=== PATIENT | male | born 1945 | race Caucasian/White ===

== ENCOUNTER 2018-01-05 15:28 | Emergency (ER) | payer MEDICARE, BC ==
--- NOTE | 2018-01-05 17:29 | RAD ---
HISTORY: Right humerus injury COMPARISONS: None VIEWS: 2, Frontal internal rotation and external rotation views of the right humerus FINDINGS: BONE DENSITY: Normal. BONES: There is no displaced fracture. JOINTS: There is mild osteoarthritis of the AC joint. ALIGNMENT: There is no dislocation. SOFT TISSUES: Unremarkable. OTHER FINDINGS: There is dystrophic calcification along the medial humeral epicondyle. IMPRESSION: NO ACUTE OSSEOUS INJURY. IF SYMPTOMS PERSIST, RECOMMEND REPEAT IMAGING.
[2018-01-05 17:50] LABS: INR 1.96 (0.77-1.02)
--- NOTE | 2018-01-05 18:15 | ED ---
Upper Extremity Pain - HPI Summary HPI Summary: 72 male presents with right arm pain for 4 days. He states 4 days ago he was lifting up behind felt a pop. He states that it seemed to get better and lift a bee hive again and felt another pop. He states that the bruising has increased since yesterday. He is placing ice on the area. He denies any chest pain or shortness breath. He admits to numbness of the area. He denies any tingling. He denies any previous injury to this area. He denies any other injury. He admits to some weakness. She is right handed. - History of Current Complaint Chief Complaint: EDExtremityUpper Stated Complaint: RT ARM INJURY Time Seen by Provider: 01/05/18 17:36 - Allergies/Home Medications Allergies/Adverse Reactions: Allergies Allergy/AdvReac Type Severity Reaction Status Date / Time Penicillins Allergy Swelling Verified 01/05/18 15:44 Of Face,Lips,& Throat iodine AdvReac Severe Vomiting Verified 01/05/18 15:44 PMH/Surg Hx/FS Hx/Imm Hx Endocrine/Hematology History: Denies: Hx Diabetes Cardiovascular History: Denies: Hx Hypertension, Hx Pacemaker/ICD History: Denies: Hx Dialysis, Hx Renal Disease Sensory History: Reports: Hx Hearing Aid - DOES NOT WEAR ALL THE TIME Psychiatric History: Denies: Hx Panic Disorder - Surgical History Surgery Procedure, Year, and Place: BRAIN TUMOR REMOVED TEMPORAL- BENIGN. RT SHOULDER SURGERY Infectious Disease History: No Infectious Disease History: Denies: Traveled Outside the [place] in Last 30 Days - Family History Known Family History: Positive: Hypertension - Social History Alcohol Use: None Substance Use Type: Reports: Prescribed Smoking Status (MU): Former Smoker Review of Systems Negative: Fever Negative: Chest Pain Negative: Shortness Of Breath Positive: Myalgia - right arm pain Positive: Bruising All Other Systems Reviewed And Are Negative: Yes Physical Exam Triage Information Reviewed: Yes Vital Signs On Initial Exam: Initial Vitals Temp Pulse Resp BP Pulse Ox 97.6 F 65 16 122/73 99 01/05/18 15:38 01/05/18 15:38 01/05/18 15:38 01/05/18 15:38 01/05/18 15:38 Vital Signs Reviewed: Yes Appearance: Positive: Well-Appearing Skin: Positive: Warm, Dry, Other - brusining to lower humerus Head/Face: Positive: Normal Head/Face Inspection Eyes: Positive: Normal, Conjunctiva Clear Respiratory/Lung Sounds: Positive: Clear to Auscultation, Breath Sounds Present Cardiovascular: Positive: Normal, RRR Musculoskeletal: Positive: Limited @ - decreased strength with contraction of arm, Other - john deformity to right arm, tenderness to distal arm, good pulses, capillary refill less than 2 seconds Neurological: Positive: Normal Psychiatric: Positive: Normal Diagnostics - Vital Signs Vital Signs Temp Pulse Resp BP Pulse Ox 01/05/18 15:38 97.6 F 65 16 122/73 99 - Laboratory Lab Results: Lab Results 01/05/18 Range/Units 17:36 INR (Anticoag Therapy) 1.96 H (0.77-1.02) Lab Statement: Any lab studies that have been ordered have been reviewed, and results considered in the medical decision making process. Course/Dx - Course Course Of Treatment: 72 male presents with right arm pain for 4 days. He states 4 days ago he was lifting up behind felt a pop. He states that it seemed to get better and lift a bee hive again and felt another pop. He states that the bruising has increased since yesterday. He is placing ice on the area. He denies any chest pain or shortness breath. He admits to numbness of the area. He denies any tingling. He denies any previous injury to this area. He denies any other injury. He admits to some weakness. She is right handed. On exam has a john deformity of right arm. Neurovascular intact. Tenderness over distal aspect of right humerus. Dr. Elaine saw patient to. X- ray normal. We'll place in sling. We'll have follow-up with orthopedic. Patient understands agrees with plan. - Diagnoses Differential Diagnosis/HQI/PQRI: Positive: Fracture (Closed), Strain, Sprain Provider Diagnoses: Biceps tendonitis on right Discharge - Sign-Out/Discharge Documenting (check all that apply): Discharge/Admit/Transfer - Discharge Plan Condition: Good Disposition: HOME Patient Education Materials: Tendon Rupture (ED) Referrals: Rafiq Aldrich MD [Primary Care Provider] - Ashley Jordan MD [Medical Doctor] - Additional Instructions: Keep in sling Take Tylenol every 6 hours as needed for pain Ice,elevate Follow up with ortho Return to ED if develop any new or worsening symptoms - Billing Disposition and Condition Condition: GOOD Disposition: HOME
[2018-01-05 18:35] VITALS: BP 135/83
--- NOTE | 2018-01-05 18:47 | ED ---
Progress - Progress Note Progress Note: I supervised the care of the physician assignment desk assistant. I performed a history and physical on this patient. History: On Coumadin, lifting today and felt a pop in his right shoulder. Right handed. Physical exam: There is laxity of the biceps tendon at the antecubital fossa. There is a Joni deformity of the muscle. There is ecchymosis and bawling of a muscle in the distal upper arm. Plan: X-rays negative. Consistent with biceps tendon rupture. Outpatient orthopedics consult. Sling arm. Course/Dx - Diagnoses Provider Diagnoses: Biceps tendonitis on right Discharge - Sign-Out/Discharge Documenting (check all that apply): Discharge/Admit/Transfer - Discharge Plan Condition: Good Disposition: HOME Patient Education Materials: Tendon Rupture (ED) Referrals: Ashley Jordan MD [Medical Doctor] - Rafiq Aldrich MD [Primary Care Provider] - Additional Instructions: Keep in sling Take Tylenol every 6 hours as needed for pain Ice,elevate Follow up with ortho Return to ED if develop any new or worsening symptoms - Billing Disposition and Condition Condition: GOOD Disposition: HOME
== END 2018-01-05 18:33 | disposition home or self-care (01) ==
LOC: ED 15:28
DX: M75.21 Bicipital tendinitis, right shoulder (principal); M79.601 Pain in right arm; Z87.891 Personal history of nicotine dependence
CPT/HCPCS: 36415; 85610; 99282

== ENCOUNTER 2019-10-26 14:00 | Emergency (ER) | payer MEDICARE, BC ==
[2019-10-26 14:24] LABS: ABS Eosinophils 0.2 10^3/ul (0-0.6); ABS Lymphocytes 1.6 10^3/ul (1.0-4.8); ABS Monocytes 0.4 10^3/ul (0-0.8); ABS Neutrophils 2.9 10^3/ul (1.5-7.7); Eosinophil % 4.1 %; Hematocrit 42 % (42-52); Hemoglobin 14.8 g/dL (14.0-18.0); Lymphocyte % 31.1 %; Mean Corpuscular HGB Conc 36 g/dL (31-36); Mean Corpuscular Hemoglobin 33 pg (27-31); Mean Corpuscular Volume 93 fL (80-94); Mean Platelet Volume 8.2 fL (7.4-10.4); Nucleated Red Blood Cells % 0.2; Platelet Count 191 10^3/uL (150-450); Red Blood Count 4.49 10^6 /uL (4.18-5.48); Red Cell Distribution Width 14 % (10-15); White Blood Count 5.1 10^3/uL (3.5-10.8)
[2019-10-26 14:30] LABS: INR 2.12 (0.82-1.09)
[2019-10-26 14:40] LABS: Albumin/Globulin Ratio 1.6 (1-3); BUN/Creatinine Ratio 24.6 (8-20); Calcium 8.6 mg/dL (8.6-10.3); EGFR African American 135.6 (>60); EGFR Non-African American 112.1 (>60); Globulin 2.5 g/dL (2-4); Total Bilirubin 0.3 mg/dL (0.2-1.0); Total Protein 6.5 g/dL (6.4-8.9)
[2019-10-26 15:52] LABS: Potassium 4.1 mmol/L (3.5-5.0)
--- NOTE | 2019-10-26 17:03 | ED ---
HPI Chest Pain - HPI Summary HPI Summary: The patient is a 74 y/o M presenting to [facility] with a chief complaint of left anterior CP initially onset last night. He reports the pain is located only in the left chest and does not radiate, but it is intermittent and lasts for a few seconds at time in sharp episodes similar to a muscle spasm. He states approximately 10-12 episodes in the last three hours. Symptoms are currently rated 5/10 in severity. The pain is not aggravated with deep breathing. He denies any diaphoresis, SOB, nausea, vomiting, edema in the lower extremities, or calf pain or swelling. He notes that he did some heavy lifting yesterday while pulling something, causing him to fall and land on the ground. No other known trauma. No previous similar episodes. No cardiac hx except for murmur, DVT and PE with Warfarin use. No recent blood clots. No recent illnesses. PMHx: BPH, seizures. Former smoker, no EtOH, no substance use. Medications reviewed. Allergies noted. - History of Current Complaint Chief Complaint: EDChestPainROMI Time Seen by Provider: 10/26/19 16:52 Hx Obtained From: Patient Onset/Duration: Started Hours Ago, Still Present Timing: Constant Initial Severity: Moderate Current Severity: Moderate Pain Intensity: 5 Pain Scale Used: 0-10 Numeric Chest Pain Location: Left Anterior Chest Pain Radiates: No Character: Dull/Aching Aggravating Factor(s): Nothing Alleviating Factor(s): Nothing Associated Signs and Symptoms: Positive: Chest Pain. Negative: Shortness of Breath, Diaphoresis, Nausea, Abdominal Pain, Calf Pain/Swelling, Vomiting, Edema - Allergy/Home Medications Allergies/Adverse Reactions: Allergies Allergy/AdvReac Type Severity Reaction Status Date / Time Penicillins Allergy Swelling Verified 10/26/19 14:06 Of Face,Lips,& Throat iodine AdvReac Severe Vomiting Verified 10/26/19 14:06 Home Medications: Home Medications Finasteride TAB* [Proscar TAB*] 5 mg PO DAILY 01/23/16 [History Confirmed ] Phenytoin CAP(*) [Dilantin CAP(*)] 100 mg PO QID 01/23/16 [History Confirmed ] Warfarin TAB(*) [Coumadin TAB(*)] 4 mg PO DAILY 01/23/16 [History Confirmed ] PHENobarbitaL [Phenobarbital] 32.4 mg PO TID 10/26/19 [History Confirmed ] PMH/Surg Hx/FS Hx/Imm Hx Endocrine/Hematology History: Denies: Hx Diabetes Cardiovascular History: Reports: Hx Deep Vein Thrombosis, Other Cardiovascular Problems/Disorders - murmur Denies: Hx Hypertension, Hx Pacemaker/ICD Respiratory History: Reports: Hx Pulmonary Embolism History: Reports: Hx Benign Prostatic Hyperplasia Denies: Hx Dialysis, Hx Renal Disease Sensory History: Reports: Hx Hearing Aid - DOES NOT WEAR ALL THE TIME Neurological History: Reports: Hx Seizures Psychiatric History: Denies: Hx Panic Disorder - Surgical History Surgical History: Yes Surgery Procedure, Year, and Place: BRAIN TUMOR REMOVED TEMPORAL- BENIGN. RT SHOULDER SURGERY Infectious Disease History: No Infectious Disease History: Denies: Traveled Outside the [place] in Last 30 Days - Family History Known Family History: Positive: Hypertension - Social History Alcohol Use: None Hx Substance Use: No Substance Use Type: Reports: Prescribed Hx Tobacco Use: Yes Smoking Status (MU): Former Smoker Review of Systems Negative: Skin Diaphoresis Positive: Chest Pain - left anterior does not radiate Negative: Shortness Of Breath Negative: Abdominal Pain, Vomiting, Nausea Negative: Edema, Other - pain or swelling in calves All Other Systems Reviewed And Are Negative: Yes Physical Exam - Summary Physical Exam Summary: Constitutional: Well-developed, Well-nourished, Alert. (-) Distressed Skin: Warm, Dry HENT: Normocephalic; Atraumatic Eyes: Conjunctiva normal Neck: Musculoskeletal ROM normal neck. (-) JVD, (-) Stridor, (-) Tracheal deviation Cardio: Rhythm regular, rate normal, Heart sounds normal; Intact distal pulses; The pedal pulses are 2+ and symmetric. Radial pulses are 2+ and symmetric. (-) Murmur Pulmonary/Chest wall: Effort normal. (-) Respiratory distress, (-) Wheezes, (-) Rales Abd: Soft, (-) tenderness, (-) Distension, (-) Guarding, (-) Rebound Musculoskeletal: No chest wall contusions, (-) rib tenderness, (-) Edema Lymph: (-) Cervical adenopathy Neuro: Alert, Oriented x3 Psych: Mood and affect Normal Triage Information Reviewed: Yes Vital Signs On Initial Exam: Initial Vitals Temp Pulse Resp BP Pulse Ox 97.7 F 77 16 157/79 98 10/26/19 14:00 10/26/19 14:00 10/26/19 14:00 10/26/19 14:00 10/26/19 14:00 Vital Signs Reviewed: Yes Procedures - Sedation Patient Received Moderate/Deep Sedation with Procedure: No Diagnostics - Vital Signs Vital Signs Temp Pulse Resp BP Pulse Ox 10/26/19 14:00 97.7 F 77 16 157/79 98 - Laboratory Lab Results: Lab Results 10/26/19 10/26/19 10/26/19 Range/Units 14:14 14:14 14:14 WBC 5.1 (3.5-10.8) 10^3/uL RBC 4.49 (4.18-5.48) 10^6 /uL Hgb 14.8 (14.0-18.0) g/dL Hct 42 (42-52) % MCV 93 (80-94) fL MCH 33 H (27-31) pg MCHC 36 (31-36) g/dL RDW 14 (10-15) % Plt Count 191 (150-450) 10^3/uL MPV 8.2 (7.4-10.4) fL Neut % (Auto) 56.4 % Lymph % (Auto) 31.1 % [place] % (Auto) 7.7 % Eos % (Auto) 4.1 % Baso % (Auto) 0.7 % Absolute Neuts (auto) 2.9 (1.5-7.7) 10^3/ul Absolute Lymphs (auto) 1.6 (1.0-4.8) 10^3/ul Absolute Monos (auto) 0.4 (0-0.8) 10^3/ul Absolute Eos (auto) 0.2 (0-0.6) 10^3/ul Absolute Basos (auto) 0.0 (0-0.2) 10^3/ul Absolute Nucleated RBC 0.0 10^3/ul Nucleated RBC % 0.2 INR (Anticoag Therapy) 2.12 H (0.82-1.09) Sodium 136 (135-145) mmol/L Potassium 4.1 (3.5-5.0) mmol/L Chloride 106 (101-111) mmol/L Carbon Dioxide 24 (22-32) mmol/L Anion Gap 6 (2-11) mmol/L BUN 17 (6-24) mg/dL Creatinine 0.69 (0.67-1.17) mg/dL Est GFR ( Amer) 135.6 (>60) Est GFR (Non-Af Amer) 112.1 (>60) BUN/Creatinine Ratio 24.6 H (8-20) Glucose 117 H (70-100) mg/dL Calcium 8.6 (8.6-10.3) mg/dL Total Bilirubin 0.30 (0.2-1.0) mg/dL AST 12 L (13-39) U/L ALT 18 (7-52) U/L Alkaline Phosphatase 124 H (34-104) U/L Troponin I 0.00 (<0.03) ng/mL Total Protein 6.5 (6.4-8.9) g/dL Albumin 4.0 (3.2-5.2) g/dL Globulin 2.5 (2-4) g/dL Albumin/Globulin Ratio 1.6 (1-3) Result Diagrams: 10/26/19 14:14 10/26/19 14:14 Lab Statement: Any lab studies that have been ordered have been reviewed, and results considered in the medical decision making process. - Radiology CXR Radiology Interpretation Completed By: Radiologist Summary of Radiographic Findings: Impression: Hyperinflation, consistent with COPD. No active cardiopulmonary disease. This report was reviewed by Dr. Rosales. - EKG 1408 Cardiac Rate: NL - 65 BPM EKG Rhythm: Sinus Rhythm Summary of EKG Findings: An EKG at 1408 reveals normal sinus rhythm at 65 BPM. No ischemic changes. This EKG was reviewed and interpreted by Dr. Rosales. Re-Evaluation - Re-Evaluation First Eval Re-Evaluation Time: 18:00 Comment: Discussed all results and plan for discharge Chest Pain Course/Dx - Course Course Of Treatment: 74 y/o M presenting to [facility] with a chief complaint of non- radiating intermittent episodes of left anterior CP onset last night with known fall with heavy lifting yesterday afternoon. O/w asymptomatic. Cardiac hx includes murmur, DVT, PE, Warfarin use. Physical reveals no acute abnormalities ; no chest wall contusions or rib tenderness. Patient placed on telemetry monitoring. Blood work reveals INR of 2.12, glucose of 117, AST of 12, alkaline phosphatase of 124. Negative first troponin. An EKG at 1408 reveals normal sinus rhythm at 65 BPM, no ischemic changes. CXR impression reveals hyperinflation consistent with COPD but is otherwise normal. Second troponin negative. Symptoms consistent with chest wall pain/pectoral muscle spasm. All results discussed. Patient is safe for discharge with PCP follow up. Patient agreeable with plan. - Diagnoses Provider Diagnoses: Chest wall pain Discharge ED - Sign-Out/Discharge Documenting (check all that apply): Patient Departure - Patient will be discharged home. - Discharge Plan Condition: Stable Disposition: HOME Patient Education Materials: Chest Wall Pain (ED) Referrals: Rafiq Aldrich MD [Primary Care Provider] - 3 Days Additional Instructions: Follow up with your primary care provider in 2-3 days. Return to the emergency department for any new or worsening symptoms. - Billing Disposition and Condition Condition: STABLE Disposition: Home - Attestation Statements Document Initiated by Eliud: Yes Documenting Scribe: Mayi Mae Provider For Whom Eliud is Documenting (Include Credential): Dr. David Rosales DO Scribe Attestation: Mayi Rojas scribed for Dr. David Rosales DO on 10/27/19 at 1011. Scribe Documentation Reviewed: Yes Provider Attestation: The documentation as recorded by the Mayi mayo accurately reflects the service I personally performed and the decisions made by me, Dr. David Rosales DO Status of Scribe Document: Viewed
[2019-10-26 18:03] VITALS: BP 116/74
== END 2019-10-26 18:03 | disposition home or self-care (01) ==
LOC: ED 14:00
DX: R07.89 Other chest pain (principal); N40.0 Benign prostatic hyperplasia without lower urinary tract symptoms; Z86.711 Personal history of pulmonary embolism; Z86.718 Personal history of other venous thrombosis and embolism; Z87.891 Personal history of nicotine dependence; Z79.01 Long term (current) use of anticoagulants; Z79.899 Other long term (current) drug therapy; Z88.0 Allergy status to penicillin; Z91.041 Radiographic dye allergy status
CPT/HCPCS: 36415; 71046; 80053; 84484; 85025; 85610; 93005; 99282